=== PATIENT | female | born 1995 | race Caucasian/White ===

== ENCOUNTER 2017-04-08 17:02 | Observation (INO) | payer BC, OTHER ==
[2017-04-08] MEDS ORDERED: Sodium Chloride 0.9% 10 ML Syringe FLUSH PRN (17:16)
[2017-04-08] MEDS ORDERED: Ketorolac 30 MG/ML SDV IVPUSH ONE (17:16)
[2017-04-08] MEDS ORDERED: Sodium Chloride 0.9% 1,000 ML IV ONE (17:16)
[2017-04-08] MEDS ORDERED: Ondansetron 4 MG/2 ML SDV IVPUSH ONE (17:16)
--- NOTE | 2017-04-08 17:29 | EDM.PDOC ---
ED HPI GENERAL MEDICAL PROBLEM - General Chief Complaint: General Stated Complaint: possible dehydration Time Seen by Provider: 04/08/17 17:15 Source of Information: Reports: Patient History Limitations: Reports: Other (unable to speak without throat pain. Mom ansered questions for her. ) - History of Present Illness INITIAL COMMENTS - FREE TEXT/NARRATIVE: Patient is one week s/p tonsillectomy. Continues to have pain. Difficulty drinking, eating, taking medicines. Mom is worried patient is dehydrated. No other specific complaints. Codeine is not helping pain. Has PRN Zofran, Ibuprofen, Tylenol. Throat Pain Score (Numeric/FACES): 8 - Related Data Allergies Allergy/AdvReac Type Severity Reaction Status Date / Time No Known Allergies Allergy Verified 04/08/17 19:28 Home Meds: Home Meds Estradiol Cypionate [Depo-Estradiol] 25 mg IM ASDIRECTED 08/31/15 [History] Acetaminophen [Tylenol Extra Strength] 1,000 mg PO Q6H PRN 04/08/17 [History] Docusate Sodium/Sennosides [Senna Plus] 1 tab PO DAILY 04/08/17 [History] FLUoxetine [PROzac] 10 mg PO DAILY 04/08/17 [History] Ibuprofen 600 mg PO Q6H PRN 04/08/17 [History] Ondansetron HCl [Zofran] 4 mg PO Q6H PRN 04/08/17 [History] oxyCODONE HCl [Oxycodone HCl] 5 mg PO Q4H PRN 04/08/17 [History] oxyCODONE HCl [Oxycodone HCl] 10 mg PO Q4H PRN 04/08/17 [History] Past Medical History - Past Surgical History HEENT Surgical History: Reports: Adenoidectomy, Tonsillectomy Social & Family History - Tobacco Use Smoking Status *Q: Never Smoker - Alcohol Use Alcohol Use History: No ED ROS GENERAL - Review of Systems Review Of Systems: See Below Constitutional: Reports: Malaise, Fatigue, Decreased Appetite. Denies: Fever, Chills, Weakness, Night Sweats, Diaphoresis HEENT: Reports: Throat Pain. Denies: Nosebleed, Nose Pain, Rhinitis, Sinus Problem, Throat Swelling, Vertigo, Vision Change Respiratory: Reports: No Symptoms Cardiovascular: Reports: No Symptoms GI/Abdominal: Reports: Constipation, Nausea. Denies: Abdominal Pain, Diarrhea, Vomiting : Reports: No Symptoms Musculoskeletal: Reports: No Symptoms Skin: Reports: No Symptoms Neurological: Reports: No Symptoms Psychiatric: Reports: No Symptoms Hematologic/Lymphatic: Reports: No Symptoms ED EXAM, GENERAL - Physical Exam Exam: See Below Exam Limited By: No Limitations General Appearance: Alert, WD/WN, Mild Distress Eye Exam: Bilateral Eye: EOMI, PERRL Ears: Normal External Exam, Normal Canal, Hearing Grossly Normal, Normal TMs Nose: Normal Inspection Throat/Mouth: Other (dry lips, moist mucosa, healing areas posterior pharynx from T&A) Head: Atraumatic, Normocephalic Neck: Supple Respiratory/Chest: No Respiratory Distress, Lungs Clear, Normal Breath Sounds, No Accessory Muscle Use Cardiovascular: No Edema, No Murmur, Tachycardia (110 at time of exam) Peripheral Pulses: 2+: Radial (L), Radial (R) GI/Abdominal: Normal Bowel Sounds, Soft, Non-Tender, No Distention (Female) Exam: Deferred Rectal (Female) Exam: Deferred Back Exam: Normal Inspection Extremities: Normal Range of Motion, Non-Tender, Slow Capillary Refill (4sec) Neurological: Alert, Oriented, Normal Cognition, Normal Gait, No Motor/Sensory Deficits Psychiatric: Normal Affect, Normal Mood Skin Exam: Warm, Dry, Intact, Normal Color Course - Vital Signs Last Recorded V/S: Last Vital Signs Temp 37.1 C 04/08/17 18:21 Pulse 88 04/08/17 18:21 Resp 18 04/08/17 18:21 BP 142/79 H 04/08/17 18:21 Pulse Ox 100 04/08/17 18:21 - Orders/Labs/Meds Orders: Active Orders 24 hr Category Date Time Status Sodium Chloride 0.9% [Saline Flush] Med 04/08/17 17:16 Active 10 ml FLUSH ASDIRECTED PRN Saline Lock Insert [OM.PC] Routine Oth 04/08/17 17:15 Ordered Medication Orders Sodium Chloride (Saline Flush) 10 ml FLUSH ASDIRECTED PRN PRN Reason: Keep Vein Open Labs: Laboratory Tests 04/08/17 04/08/17 04/08/17 Range/Units 19:15 19:15 19:35 WBC 10.8 H (4.0-10.2) K/uL RBC 4.95 (3.77-5.09) M/uL Hgb 15.6 H (11.7-15.5) g/dL Hct 44.4 (34.0-46.0) % MCV 89.7 (84.0-98.0) fL MCH 31.5 (28.2-33.3) pg MCHC 35.1 (31.7-36.0) g/dL RDW 12.4 (11.2-14.1) % Plt Count 345 (150-350) K/uL Neut % (Auto) 69.9 (45.0-80.0) % Lymph % (Auto) 19.3 (10.0-50.0) % [place] % (Auto) 9.4 (2.0-14.0) % Eos % (Auto) 1.2 (0.0-5.0) % Baso % (Auto) 0.2 (0.0-2.0) % Neut # (Auto) 7.55 H (1.40-7.00) K/uL Lymph # (Auto) 2.09 (0.50-3.50) K/uL [place] # (Auto) 1.02 H (0.00-1.00) K/uL Eos # (Auto) 0.13 (0.00-0.50) K/uL Baso # (Auto) 0.02 (0.00-0.20) K/uL Sodium 140 (136-145) mmol/L Potassium 4.0 (3.5-5.1) mmol/L Chloride 103 (98-107) mmol/L Carbon Dioxide 24.1 (21.0-32.0) mmol/L BUN 12 (7-18) mg/dL Creatinine 0.88 (0.51-1.17) mg/dL Est Cr Clr Drug Dosing 99.17 mL/min Estimated GFR (MDRD) > 60 mL/min Glucose 79 (74-106) mg/dL Calcium 9.5 (8.5-10.1) mg/dL Specimen Type Urincc Urine Color Dark yellow Urine Appearance Slightly cloudy Urine pH 5.5 (5.0-9.0) Ur Specific [place] 1.025 (1.005-1.030) Urine Protein Trace H (NEGATIVE) mg/dL Urine Glucose (UA) Negative (NEGATIVE) mg/dL Urine Ketones >=160 H (NEGATIVE) mg/dL Urine Occult Blood Negative (NEGATIVE) Urine Nitrite Negative (NEGATIVE) Urine Bilirubin Small H (NEGATIVE) Urine Urobilinogen 0.2 (0.2-1.0) E.U./dL Ur Leukocyte Esterase Small H (NEGATIVE) Urine RBC 0-5 /HPF Urine WBC 40-50 H /HPF Ur Epithelial Cells Moderate H /LPF Urine Bacteria Many H (NONE TO FEW) /HPF Meds: Medications Generic Name Dose Route Start Last Admin Trade Name Freq PRN Reason Stop Dose Admin Sodium Chloride 10 ml 04/08/17 17:16 Saline Flush FLUSH ASDIRECTED PRN Keep Vein Open Discontinued Medications Generic Name Dose Route Start Last Admin Trade Name Freq PRN Reason Stop Dose Admin Sodium Chloride 1,000 mls @ 999 mls/hr 04/08/17 17:16 04/08/17 19:27 Normal Saline IV 04/08/17 18:16 999 mls/hr .BOLUS ONE Administration Ketorolac Tromethamine 30 mg 04/08/17 17:16 Toradol IVPUSH 04/08/17 17:17 ONETIME ONE Ketorolac Tromethamine 60 mg 04/08/17 18:01 04/08/17 18:10 Toradol IM 04/08/17 18:02 60 mg ONETIME ONE Administration Morphine Sulfate 5 mg 04/08/17 18:01 04/08/17 18:11 Morphine IM 04/08/17 18:02 5 mg ONETIME ONE Administration Ondansetron HCl 4 mg 04/08/17 17:16 Zofran IVPUSH 04/08/17 17:17 ONETIME ONE - Re-Assessments/Exams Free Text/Narrative Re-Assessment/Exam: 04/08/17 19:17 Unable to obtain IV site/labs despite multiple attempts. Patient was then given IM MS and Toradol. Pain significantly improved. 04/08/17 20:32 IV site successful. Admitted observation for IV rehydration, pain control, and treatment of UTI. Departure - Departure Time of Disposition: 20:33 Disposition: Refer to Observation Condition: Good Clinical Impression: Dehydration, moderate, Post-tonsillectomy pain UTI (urinary tract infection) Qualifiers: Urinary tract infection type: acute cystitis Hematuria presence: without hematuria Qualified Code(s): N30.00 - Acute cystitis without hematuria - Discharge Information - Problem List & Annotations (1) Dehydration, moderate SNOMED Code(s): 3834207017374 Code(s): E86.0 - DEHYDRATION Status: Acute Priority: High Current Visit : Yes (2) Post-tonsillectomy pain SNOMED Code(s): 670791657 Code(s): G89.18 - OTHER ACUTE POSTPROCEDURAL PAIN; Z90.89 - ACQUIRED ABSENCE OF OTHER ORGANS Status: Acute Priority: High Current Visit: Yes Onset Date: ~04/02/17 (3) UTI (urinary tract infection) SNOMED Code(s): 51983339 Code(s): N39.0 - URINARY TRACT INFECTION, SITE NOT SPECIFIED Status: Acute Priority: High Current Visit: Yes Onset Date: ~04/08/17 Qualifiers: Urinary tract infection type: acute cystitis Hematuria presence: without hematuria Qualified Code(s): N30.00 - Acute cystitis without hematuria - Problem List Review Problem List Initiated/Reviewed/Updated: Yes - My Orders Last 24 Hours: My Active Orders 04/08/17 17:15 Saline Lock Insert [OM.PC] Routine 04/08/17 17:16 Sodium Chloride 0.9% [Saline Flush] 10 ml FLUSH ASDIRECTED PRN - Assessment/Plan Admission H&P: Please use this note as an admission H&P Last 24 Hours: My Active Orders 04/08/17 17:15 Saline Lock Insert [OM.PC] Routine 04/08/17 17:16 Sodium Chloride 0.9% [Saline Flush] 10 ml FLUSH ASDIRECTED PRN Assessment:: Dehydration in patient with recent T&A procedure. UTI. Plan: IV fluids, pain control. Rocephin for UTI.
[2017-04-08] MEDS ORDERED: Ketorolac 60 MG/2 ML SDV IM ONE (18:01)
[2017-04-08] MEDS ORDERED: Morphine 10 MG/ML Syringe IM ONE (18:01)
[2017-04-08 19:38] LABS: CHLORIDE,CL 103 mmol/L (98-107); SODIUM,NA 140 mmol/L (136-145)
[2017-04-08] MEDS ORDERED: Magnesium Hydroxide 400 MG/5 ML Susp 30 ML Cup PO PRN (20:38)
[2017-04-08] MEDS ORDERED: Bisacodyl 10 MG Supp RECTAL PRN (20:38)
[2017-04-08] MEDS ORDERED: Acetaminophen 325 MG Tab PO PRN (20:38)
[2017-04-08] MEDS ORDERED: Sodium Chloride 0.9% 1,000 ML IV SCH (20:45)
[2017-04-08] MEDS ORDERED: ESTRADIOL CYPIONATE IM SCH (20:45)
[2017-04-08] MEDS ORDERED: Morphine 2 MG/ML Syringe IVPUSH PRN (20:46)
[2017-04-08] MEDS ORDERED: Ondansetron 4 MG/2 ML SDV IVPUSH PRN (20:47)
[2017-04-08] MEDS ORDERED: cefTRIAXone 1 GM in Sodium Chloride 0.9% 100 ML IV SCH (21:00)
[2017-04-08] MEDS: Ketorolac 30 MG/ML SDV IVPUSH SCH (23:56)
[2017-04-09 00:14] VITALS: BP 113/51
[2017-04-09] MEDS: Sodium Chloride 0.9% 1,000 ML IV SCH ×2 (01:13→07:55)
[2017-04-09] MEDS: Ketorolac 30 MG/ML SDV IVPUSH SCH (06:12)
[2017-04-09] MEDS ORDERED: FLUoxetine 10 MG Cap PO SCH (08:00)
[2017-04-09 08:51] LABS: CHLORIDE,CL 106 mmol/L (98-107); SODIUM,NA 140 mmol/L (136-145)
--- NOTE | 2017-04-09 09:07 | PCM.DCSUM1 ---
Discharge Summary - Hospital Course HPI Initial Comments: See emergency room note/admission H&P Brief History: See emergency room note/admission H&P - Discharge Data Discharge Date: 04/09/17 Discharge Disposition: Home, Self-Care 01 Condition: Good - Discharge Diagnosis/Problem(s) (1) Post-tonsillectomy pain SNOMED Code(s): 561225797 ICD Code: G89.18 - OTHER ACUTE POSTPROCEDURAL PAIN; Z90.89 - ACQUIRED ABSENCE OF OTHER ORGANS Status: Acute Priority: High Current Visit: Yes Onset Date: ~04/02/17 Problem Details: Pain under good control with Toradol therapy during this hospitalization, including prior to discharge. The patient does wish to go home. She did tolerate her diet and fluids well during this hospitalization. The patient denies any abdominal pain, nausea, emesis, etc. She did receive IV Rocephin yesterday evening. Amoxicillin at discharge secondary to her current UTI, which should also be beneficial for her recent tonsillectomy and adenoidectomy. She apparently does not have a follow-up appointment with her surgeon after her tonsillectomy, although she will follow- up with her regular provider as per discharge instructions as follow-up for her UTI. The patient denies any current hematuria, dysuria, etc. Urine culture is still pending. (2) Dehydration, moderate SNOMED Code(s): 8139207622399 ICD Code: E86.0 - DEHYDRATION Status: Acute Priority: High Current Visit: Yes Onset Date: ~04/08/17 Problem Details: Aggressive IV fluids during this hospitalization. Dehydration resolved at time of discharge. Mild leukocytosis resolved at discharge with mild decrease of her hemoglobin at discharge secondary to rehydration effect. Patient is afebrile at discharge (3) UTI (urinary tract infection) SNOMED Code(s): 79819747 ICD Code: N39.0 - URINARY TRACT INFECTION, SITE NOT SPECIFIED Status: Acute Priority: High Current Visit: Yes Onset Date: ~04/08/17 Problem Details: As above Qualifiers: Urinary tract infection type: acute cystitis Hematuria presence: without hematuria Qualified Code(s): N30.00 - Acute cystitis without hematuria (4) Mixed anxiety depressive disorder SNOMED Code(s): 228672825 ICD Code: F41.8 - OTHER SPECIFIED ANXIETY DISORDERS Status: Chronic Priority: Medium Current Visit: Yes Problem Details: Stable by patient history (5) Constipation SNOMED Code(s): 02511417 ICD Code: K59.00 - CONSTIPATION, UNSPECIFIED Status: Chronic Priority: Medium Current Visit: Yes Problem Details: Stable by history Qualifiers: Constipation type: chronic idiopathic constipation Qualified Code(s): K59.04 - Chronic idiopathic constipation - Patient Summary/Data Operative Procedure(s) Performed: None although recent tonsillectomy and adenoidectomy on 04/02/17 Complications: None Consults: None Labs Pending at D/C: Urine culture and sensitivity just set up this a.m. Recommended Follow-up Testing/Procedures: As per discharge instructions Planned Operative Procedure(s) after DC: None Hospital Course: The patient was admitted to observation status for treatment of postoperative tonsillectomy pain and dehydration with overall excellent results to medical treatment, including aggressive IV fluids, IV morphine, IV Toradol, etc. as above. Symptoms significantly improved during this hospitalization as above. Newly diagnosed UTI was treated with one dose of IV Rocephin with amoxicillin prescribed at discharge. No complications during this hospitalization. - Patient Instructions Diet: Regular Diet as Tolerated Diet, Other: As per discharge instructions Activity: As Tolerated Driving: May Drive Today Showering/Bathing: May Shower Notify Provider of: Fever, Increased Pain, Swelling and Redness, Drainage, Nausea and/or Vomiting Other/Special Instructions: 1. Followup with your regular provider in 10-14 days as directed with repeat urine tests as below at that time recommended. 2. [place] diet including encouragement of oral fluids such as sports drinks, etc. for 24-48 hours as directed. Advance to postoperative tonsillectomy diet as previously directed with subsequent regular diet as tolerated thereafter. 3. Urine tests should be repeated at follow up visit with possible repeat urine culture,etc. at that time. Today's urine culture is pending with results in about 2-3 days. We will call you, if we need to change your therapy. 4. Tylenol 650 mg by mouth every 4 hours and/or OTC ibuprofen 2-3 tabs by mouth every 6 hours with food as directed./needed. Next dose of ibuprofen as needed in 6 hours because of medications given during this hospitalization. 5. [place] gargles four times per day, after meals and at bedtime, with additional Chloroseptic lozenges or spray as needed for 10 days and/or until symptoms resolve. - Discharge Plan Prescriptions/Med Rec: Amoxicillin 800 mg CHEW BID #40 [email or web address] Home Medications: Home Meds Docusate Sodium/Sennosides [Senna Plus] 1 tab PO DAILY 04/08/17 [History] FLUoxetine [PROzac] 10 mg PO DAILY 04/08/17 [History] Ondansetron HCl [Zofran] 4 mg PO Q6H PRN 04/08/17 [History] medroxyPROGESTERone Acetate [Depo-Provera] 150 mg IM Q3M 04/08/17 [History] Acetaminophen [Tylenol] 650 mg PO Q4H PRN #0 tablet 04/09/17 [Rx] Amoxicillin 800 mg CHEW BID #40 tab.chew 04/09/17 [Rx] Patient Handouts: Ketorolac injection, Ceftriaxone injection, Tonsillectomy, Adult, Care After, Diet Following Tonsillectomy, Adult Forms: ED Department Discharge Referrals: PCP,Not In Area [Primary Care Provider] - - Discharge Summary/Plan Comment DC Time >30 min.: Yes (Coordination of care) Discharge Summary/Plan Comment: As above. Extensive precautions were given to the patient, who is in agreement with the treatment plan. See Patient Instructions for further treatment and plan. - General Info Date of Service: 04/09/17 Functional Status: Reports: Pain Controlled, Tolerating Diet, Ambulating, Urinating. Denies: New Symptoms, Incentive Spirometry Numeric/FACES Score: 4 - Review of Systems General: Reports: No Symptoms. Denies: Fever, Weakness, Fatigue, Malaise, Chills, Night Sweats, Appetite (Appetite good) HEENT: Reports: Sore Throat (Significantly improved). Denies: Ear Pain, Eye Pain, Headaches, Post Nasal Drip, Sinus Congestion, Rhinitis, Visual Changes Pulmonary: Reports: No Symptoms. Denies: Shortness of Breath, Pleuritic Chest Pain, Cough, Sputum, Wheezing Cardiovascular: Reports: No Symptoms. Denies: Chest Pain, Palpitations, Dyspnea on Exertion, Orthopnea, Edema, Lightheadedness Gastrointestinal: Reports: No Symptoms. Denies: Abdominal Pain, Constipation, Decreased Appetite, Diarrhea, Difficulty Swallowing, Flatus, Hematochezia, Melena, Nausea, Vomiting Genitourinary: Reports: No Symptoms, Other (Note current probable UTI with culture pending). Denies: Dysuria, Frequency, Burning, Pain, Urgency, Incontinence, Hematuria, Retention, Flank Pain Musculoskeletal: Reports: No Symptoms. Denies: Neck Pain, Shoulder Pain, Arm Pain, Back Pain, Leg Pain, Joint Pain, Joint Swelling Skin: Reports: No Symptoms. Denies: Jaundice, Pallor, Diaphoresis, Bruising, Pruritis Neurological: Reports: No Symptoms. Denies: Confusion, Dizziness, Headache, Numbness, Paresthesia, Tingling Psychiatric: Reports: No Symptoms. Denies: Confusion, Depression, Anxiety, Agitation, Hallucinations - Patient Data Vitals - Most Recent: Last Vital Signs Temp 36.5 C 04/09/17 00:00 Pulse 58 L 04/09/17 00:00 Resp 14 04/09/17 00:00 BP 113/51 L 04/09/17 00:00 Pulse Ox 97 04/09/17 00:00 Vital Signs - 24 hr 04/08/17 04/08/17 04/09/17 18:21 20:41 00:00 Temperature [ 37.1 C 36.5 C Temporal] Pulse, 88 58 L Peripheral [ Left Pulse Oximetry] Respiratory 18 14 Rate Blood Pressure 142/79 H 113/51 L [Left Upper Arm ] O2 Sat by Pulse 100 100 97 Oximetry Weight - Most Recent: 66.22 kg I&O - Last 24 hours: Intake & Output 04/08/17 04/09/17 04/09/17 22:59 06:59 14:59 Intake Total 1085 2156 120 Output Total 600 Balance 1085 2156 -480 Imaging Impressions - Last 24 hrs: None Lab Results - Last 24 hrs: Laboratory Results - last 24 hr 04/09/17 04/09/17 Range/Units 08:30 08:30 WBC 9.9 (4.0-10.2) K/uL RBC 4.40 (3.77-5.09) M/uL Hgb 13.9 D (11.7-15.5) g/dL Hct 40.3 (34.0-46.0) % MCV 91.6 (84.0-98.0) fL MCH 31.6 (28.2-33.3) pg MCHC 34.5 (31.7-36.0) g/dL RDW 12.3 (11.2-14.1) % Plt Count 284 (150-350) K/uL Neut % (Auto) 72.4 (45.0-80.0) % Lymph % (Auto) 15.3 (10.0-50.0) % [place] % (Auto) 10.7 (2.0-14.0) % Eos % (Auto) 1.4 (0.0-5.0) % Baso % (Auto) 0.2 (0.0-2.0) % Neut # (Auto) 7.17 H (1.40-7.00) K/uL Lymph # (Auto) 1.52 (0.50-3.50) K/uL [place] # (Auto) 1.06 H (0.00-1.00) K/uL Eos # (Auto) 0.14 (0.00-0.50) K/uL Baso # (Auto) 0.02 (0.00-0.20) K/uL Sodium 140 (136-145) mmol/L Potassium 4.1 (3.5-5.1) mmol/L Chloride 106 (98-107) mmol/L Carbon Dioxide 26.7 (21.0-32.0) mmol/L BUN 11 (7-18) mg/dL Creatinine 0.82 (0.51-1.17) mg/dL Est Cr Clr Drug Dosing 106.14 mL/min Estimated GFR (MDRD) > 60 mL/min Glucose 91 (74-106) mg/dL Calcium 8.5 (8.5-10.1) mg/dL Laboratory Tests 04/08/17 04/08/17 04/08/17 Range/Units 19:15 19:15 19:35 WBC 10.8 H (4.0-10.2) K/uL RBC 4.95 (3.77-5.09) M/uL Hgb 15.6 H (11.7-15.5) g/dL Hct 44.4 (34.0-46.0) % MCV 89.7 (84.0-98.0) fL MCH 31.5 (28.2-33.3) pg MCHC 35.1 (31.7-36.0) g/dL RDW 12.4 (11.2-14.1) % Plt Count 345 (150-350) K/uL Neut % (Auto) 69.9 (45.0-80.0) % Lymph % (Auto) 19.3 (10.0-50.0) % [place] % (Auto) 9.4 (2.0-14.0) % Eos % (Auto) 1.2 (0.0-5.0) % Baso % (Auto) 0.2 (0.0-2.0) % Neut # (Auto) 7.55 H (1.40-7.00) K/uL Lymph # (Auto) 2.09 (0.50-3.50) K/uL [place] # (Auto) 1.02 H (0.00-1.00) K/uL Eos # (Auto) 0.13 (0.00-0.50) K/uL Baso # (Auto) 0.02 (0.00-0.20) K/uL Sodium 140 (136-145) mmol/L Potassium 4.0 (3.5-5.1) mmol/L Chloride 103 (98-107) mmol/L Carbon Dioxide 24.1 (21.0-32.0) mmol/L BUN 12 (7-18) mg/dL Creatinine 0.88 (0.51-1.17) mg/dL Est Cr Clr Drug Dosing 99.17 mL/min Estimated GFR (MDRD) > 60 mL/min Glucose 79 (74-106) mg/dL Calcium 9.5 (8.5-10.1) mg/dL Specimen Type Urincc Urine Color Dark yellow Urine Appearance Slightly cloudy Urine pH 5.5 (5.0-9.0) Ur Specific [place] 1.025 (1.005-1.030) Urine Protein Trace H (NEGATIVE) mg/dL Urine Glucose (UA) Negative (NEGATIVE) mg/dL Urine Ketones >=160 H (NEGATIVE) mg/dL Urine Occult Blood Negative (NEGATIVE) Urine Nitrite Negative (NEGATIVE) Urine Bilirubin Small H (NEGATIVE) Urine Urobilinogen 0.2 (0.2-1.0) E.U./dL Ur Leukocyte Esterase Small H (NEGATIVE) Urine RBC 0-5 /HPF Urine WBC 40-50 H /HPF Ur Epithelial Cells Moderate H /LPF Urine Bacteria Many H (NONE TO FEW) /HPF 04/09/17 04/09/17 Range/Units 08:30 08:30 WBC 9.9 (4.0-10.2) K/uL RBC 4.40 (3.77-5.09) M/uL Hgb 13.9 D (11.7-15.5) g/dL Hct 40.3 (34.0-46.0) % MCV 91.6 (84.0-98.0) fL MCH 31.6 (28.2-33.3) pg MCHC 34.5 (31.7-36.0) g/dL RDW 12.3 (11.2-14.1) % Plt Count 284 (150-350) K/uL Neut % (Auto) 72.4 (45.0-80.0) % Lymph % (Auto) 15.3 (10.0-50.0) % [place] % (Auto) 10.7 (2.0-14.0) % Eos % (Auto) 1.4 (0.0-5.0) % Baso % (Auto) 0.2 (0.0-2.0) % Neut # (Auto) 7.17 H (1.40-7.00) K/uL Lymph # (Auto) 1.52 (0.50-3.50) K/uL [place] # (Auto) 1.06 H (0.00-1.00) K/uL Eos # (Auto) 0.14 (0.00-0.50) K/uL Baso # (Auto) 0.02 (0.00-0.20) K/uL Sodium 140 (136-145) mmol/L Potassium 4.1 (3.5-5.1) mmol/L Chloride 106 (98-107) mmol/L Carbon Dioxide 26.7 (21.0-32.0) mmol/L BUN 11 (7-18) mg/dL Creatinine 0.82 (0.51-1.17) mg/dL Est Cr Clr Drug Dosing 106.14 mL/min Estimated GFR (MDRD) > 60 mL/min Glucose 91 (74-106) mg/dL Calcium 8.5 (8.5-10.1) mg/dL Specimen Type Urine Color Urine Appearance Urine pH (5.0-9.0) Ur Specific [place] (1.005-1.030) Urine Protein (NEGATIVE) mg/dL Urine Glucose (UA) (NEGATIVE) mg/dL Urine Ketones (NEGATIVE) mg/dL Urine Occult Blood (NEGATIVE) Urine Nitrite (NEGATIVE) Urine Bilirubin (NEGATIVE) Urine Urobilinogen (0.2-1.0) E.U./dL Ur Leukocyte Esterase (NEGATIVE) Urine RBC /HPF Urine WBC /HPF Ur Epithelial Cells /LPF Urine Bacteria (NONE TO FEW) /HPF BRIGITTE Results - Last 24 hrs: Urine culture pending Med Orders - Current: Current Medications Acetaminophen (Tylenol) 650 mg PO Q4H PRN PRN Reason: analgesia/fever Bisacodyl (Dulcolax) 10 mg RECTAL DAILY PRN PRN Reason: Constipation Fluoxetine HCl (Prozac) 10 mg PO DAILY [facility] Last Admin: 04/09/17 08:25 Dose: 10 mg Ceftriaxone Sodium 1 gm/ (Sodium Chloride) 100 mls @ 200 mls/hr IV Q24H [facility] Last Admin: 04/08/17 21:19 Dose: 200 mls/hr Sodium Chloride (Normal Saline) 1,000 mls @ 150 mls/hr IV ASDIRECTED [facility] Last Admin: 04/09/17 07:55 Dose: 150 mls/hr Ketorolac Tromethamine (Toradol) 30 mg IVPUSH Q6H [facility] Stop: 04/13/17 00:01 Last Admin: 04/09/17 06:12 Dose: 30 mg Magnesium Hydroxide (Milk Of Magnesia) 30 ml PO BID PRN PRN Reason: Constipation Last Admin: 04/08/17 21:19 Dose: 30 ml Morphine Sulfate (Morphine) 2 mg IVPUSH Q1H PRN PRN Reason: Pain (moderate 4-6) Non-Formulary Medication (Estradiol Cypionate) 25 mg IM ASDIRECTED [facility] Ondansetron HCl (Zofran) 4 mg IVPUSH Q6H PRN PRN Reason: Nausea/Vomiting Sodium Chloride (Saline Flush) 10 ml FLUSH ASDIRECTED PRN PRN Reason: Keep Vein Open Discontinued Medications Sodium Chloride (Normal Saline) 1,000 mls @ 999 mls/hr IV .BOLUS ONE Stop: 04/08/17 18:16 Last Admin: 04/08/17 19:27 Dose: 999 mls/hr Sodium Chloride (Normal Saline) 1,000 mls @ 250 mls/hr IV ASDIRECTED [facility] Last Admin: 04/08/17 20:41 Dose: 250 mls/hr Ketorolac Tromethamine (Toradol) 30 mg IVPUSH ONETIME ONE Stop: 04/08/17 17:17 Last Admin: 04/08/17 20:40 Dose: Not Given Ketorolac Tromethamine (Toradol) 60 mg IM ONETIME ONE Stop: 04/08/17 18:02 Last Admin: 04/08/17 18:10 Dose: 60 mg Morphine Sulfate (Morphine) 5 mg IM ONETIME ONE Stop: 04/08/17 18:02 Last Admin: 04/08/17 18:11 Dose: 5 mg Ondansetron HCl (Zofran) 4 mg IVPUSH ONETIME ONE Stop: 04/08/17 17:17 - Exam Quality Assessment: Reports: DVT prophylaxis. Denies: supplemental oxygen, central line/PICC, urine catheter, skin breakdown, restraints General: Reports: alert, oriented, cooperative, no acute distress HEENT: Reports: Pupils equal, Pupils reactive, EOMI, Mucous membr. moist/pink, Other (Normal postoperative changes at tonsillectomy site with no acute bleeding , including during this entire hospitalization) Neck: Reports: supple, trachea midline, no JVD, no thyromegaly. Denies: lymphadenopathy Lungs: Reports: Clear to Auscultation, Normal Respiratory Effort. Denies: Rub Cardiovascular: Reports: Regular Rate, Regular Rhythm, No Murmurs. Denies: Gallops, Rubs GI/Abdominal Exam: Normal Bowel Sounds, Soft, Non-Tender, No Organomegaly, No Distention, No Abnormal Bruit, No Mass, Pelvis Stable. No: Guarding (Female) Exam: Deferred Rectal (Female) Exam: Deferred Back Exam: Reports: Normal Inspection, Full Range of Motion. Denies: CVA Tenderness (L), CVA Tenderness (R), Muscle Spasm Extremities: Normal Inspection, Normal Range of Motion, Non-Tender, No Pedal Edema, Normal Capillary Refill Skin: Reports: warm, dry, intact. Denies: rash, ecchymosis Wound/Incisions: Reports: healing well, no drainage Neurological: Reports: no new focal deficit, other (No clinical orthostasis) Psy/Mental Status: Reports: alert, normal affect, normal mood. Denies: agitated , withdrawal symptoms *Q Meaningful Use (DIS) - VTE *Q VTE Criteria *Q: - Stroke *Q Stroke Criteria *Q: - AMI *Q AMI Criteria *Q:
--- NOTE | 2017-04-09 10:13 | PCM.SN ---
- Free Text/Narrative Note: Patient's pharmacy only has 250 mg Amoxil Chew tabs. Discharge changed to Amoxil 250 mg chew tabs, 3 tabs PO bid x 10 days, no refills.
== END 2017-04-09 10:20 | disposition home or self-care (01) ==
LOC: LL.ED 17:02 → LL.MS 20:05
PROVIDERS: ADMIT Emergency Medicine; ATTEND Family Medicine
DX: G89.18 Other acute postprocedural pain (principal); E86.0 Dehydration; N30.00 Acute cystitis without hematuria; F41.8 Other specified anxiety disorders; K59.04 Chronic idiopathic constipation; Z90.49 Acquired absence of other specified parts of digestive tract; Z79.899 Other long term (current) drug therapy; Z79.2 Long term (current) use of antibiotics; Z98.890 Other specified postprocedural states
CPT/HCPCS: 36415; 80048; 81001; 85025; 87086; 96361; 96365; 96372; 96375; 96376; 99285; A9270; G0378; J0696; J1885; J2270; J7030; J7050; 96360

== ENCOUNTER 2020-11-11 14:46 | Emergency (ER) | payer BC, OTHER ==
[2020-11-11 14:55] VITALS: BP 141/90; PULSE 88
--- NOTE | 2020-11-11 15:41 | EDM.PDOC ---
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 Unvaccinated. Unknow n if exposed to outside animals or if strictly indoor cat. Cat was euthanized yesterday. Now has swollen hand near base of thumb. No fevers. . Madeline Jim from [facility] did call in an Augmentin Rx for patient but she has not yet picked that up. Unable to be evaluated by clinic until tomorrow. 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 ED EXAM, ANIMAL BITE - Physical Exam Exam: See Below Exam Limited By: No Limitations General Appearance: Alert, WD/WN, No Apparent Distress Eye Exam: Bilateral Eye: EOMI, PERRL Throat/Mouth: Normal Lips, Normal Voice, No Airway Compromise Head: Atraumatic, Normocephalic Neck: Supple Respiratory/Chest: No Respiratory Distress Extremities: Normal Range of Motion, Normal Capillary Refill, Other (several puncture wounds/redness/swelling noted right hand near base of thumb. No active drainage. Early red streaking noted around area. ) Neurological: Alert, Oriented, Normal Cognition, Normal Gait Psychiatric: Normal Affect, Normal Mood Skin Exam: Other (see above) Course - Vital Signs Last Recorded V/S: Last Vital Signs Temp 36.3 C 11/11/20 14:54 Pulse 88 11/11/20 14:54 Resp 18 11/11/20 14:54 BP 141/90 H 11/11/20 14:54 Pulse Ox 98 11/11/20 14:54 - Re-Assessments/Exams Free Text/Narrative Re-Assessment/Exam: 11/11/20 15:50 Precautions reviewed. Start Augmentin mingo. Recheck wound tomorrow at clinic. Recommended to patient they arrange for Rabies testing of cat. Departure - Departure Time of Disposition: 15:39 Disposition: Home, Self-Care 01 Condition: Good Clinical Impression: Cellulitis Qualifiers: Site of cellulitis: extremity Site of cellulitis of extremity: upper extremity Laterality: right Qualified Code(s): L03.113 - Cellulitis of right upper limb Cat bite of hand Qualifiers: Encounter type: initial encounter Laterality: right Qualified Code(s): S61.451A - Open bite of right hand, initial encounter - Discharge Information *PRESCRIPTION DRUG MONITORING PROGRAM REVIEWED*: Not Applicable *COPY OF PRESCRIPTION DRUG MONITORING REPORT IN PATIENT KDAEEM: Not Applicable Instructions: Animal Bite, Adult, [id number] Referrals: Leatha Nunez PA-C [Primary Care Provider] - Forms: ED Department Discharge Additional Instructions: Start your Augmentin right away. 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 If your hand continues to get worse get rechecked. If the cat was not a strictly indoor cat with no exposure to outside animals then rabies risk is minimal. If the cat had outside exposure then Rabies is a possibility and testing would be high priority. As discussed, call [facility] Vet department and arrange testing of the cat mingo. If rabies + you will need to start treatment. Follow up otherwise as needed if you have problems/concerns. Sepsis Event Note (ED) - Evaluation Sepsis Screening Result: No Definite Risk - Focused Exam Vital Signs: Vital Signs Temp Pulse Resp BP Pulse Ox 11/11/20 14:54 36.3 C 88 18 141/90 H 98
== END 2020-11-11 16:10 | disposition home or self-care (01) ==
LOC: LL.ED 14:46
DX: O9A.213 Injury, poisoning and certain other consequences of external causes complicating pregnancy, third trimester (principal); S61.451A Open bite of right hand, initial encounter; O99.713 Diseases of the skin and subcutaneous tissue complicating pregnancy, third trimester; L03.113 Cellulitis of right upper limb; Z88.5 Allergy status to narcotic agent; Z3A.29 29 weeks gestation of pregnancy; W55.01XA Bitten by cat, initial encounter
CPT/HCPCS: 99283

== ENCOUNTER 2022-02-08 07:02 | Emergency (ER) | payer BC, OTHER ==
[2022-02-08] MEDS ORDERED: traMADol 50 MG Tab PO ONE (07:10)
[2022-02-08] MEDS ORDERED: Sodium Chloride 0.9% 10 ML Syringe FLUSH PRN (07:10)
[2022-02-08] MEDS ORDERED: fentaNYL 50 MCG/ML SDV IVPUSH ONE (07:13)
[2022-02-08] MEDS ORDERED: Ondansetron 4 MG/2 ML SDV IVPUSH ONE (07:14)
[2022-02-08] MEDS ORDERED: Sodium Chloride 0.9% 1,000 ML IV SCH (07:15)
[2022-02-08 08:19] LABS: ANION GAP 10.6 meq/L (7-15); CHLORIDE,CL 105 mmol/L (98-107); SODIUM,NA 141 mmol/L (136-145)
[2022-02-08] MEDS ORDERED: Sodium Chloride 0.9% 1,000 ML IV ONE (08:48)
[2022-02-08] MEDS ORDERED: Dicyclomine 20 MG Tab PO ONE (08:58)
[2022-02-08] MEDS ORDERED: Loperamide 2 MG Tab PO ONE (08:58)
[2022-02-08 09:48] VITALS: BP 121/71
[2022-02-08 12:03] VITALS: PULSE 73
== END 2022-02-08 10:25 | disposition home or self-care (01) ==
LOC: LL.ED 07:02
DX: K52.9 Noninfective gastroenteritis and colitis, unspecified (principal); Z88.5 Allergy status to narcotic agent
CPT/HCPCS: 36415; 74019; 80053; 81001; 82272; 84703; 85025; 96361; 96374; 96375; 99283; 99284-25; A9270-GY; J2405; J3010; J7030